=== PATIENT | female | born 1960 | race African-American/Black ===

== ENCOUNTER 2017-11-27 15:41 | Emergency (ER) | payer OTHER ==
[2017-11-27] MEDS ORDERED: Ketorolac Tromethamine 30 MG/ML VIAL ONE (16:36)
[2017-11-27] MEDS ORDERED: diphenhydrAMINE 50 MG/ML VIAL ONE (16:36)
[2017-11-27] MEDS ORDERED: Metoclopramide HCl 10 MG/2 ML VIAL ONE (16:37)
[2017-11-27] MEDS ORDERED: HYDROcodone/Acetaminophen 5/325 mg Tablet ONE (18:15)
== END 2017-11-27 18:25 | disposition home or self-care (01) ==
LOC: SCSER 15:41
DX: R51 Headache (principal); E11.9 Type 2 diabetes mellitus without complications; E78.5 Hyperlipidemia, unspecified; I10 Essential (primary) hypertension
CPT/HCPCS: 96365; 96375; J1200; J1885; J2765

== ENCOUNTER 2017-12-01 11:01 | Outpatient (CLI) | payer OTHER ==
--- NOTE | 2017-12-01 13:16 | CT ---
CT BRAIN NONCONTRAST: HISTORY: 57-year-old female with new onset headache. FINDINGS: There is no midline shift or any other mass effect. There is no evidence of acute intracranial hemor rhage, large cortical infarct, obstructive hydrocephalus, or extraaxial fluid collection. The calvar ium is intact. There is 0.7 x 0.6 cm calcification in the left deep parietal region, slightly inferio r to the trigone of the left lateral ventricle, of uncertain etiology and significance. The upper por tions of the paranasal sinuses are grossly clear. Bilateral middle ear cavities and mastoid antra are also grossly clear. IMPRESSION: 1. No acute intracranial findings. 2. Nonspecific left deep parietal intraaxial small calcification. jn R POS: TPC
== END 2017-12-01 11:02 | disposition home or self-care (01) ==
LOC: SCSCT 11:01
PROVIDERS: ATTEND Family Medicine
DX: G44.89 Other headache syndrome (principal); G93.89 Other specified disorders of brain
CPT/HCPCS: 70450

== ENCOUNTER 2018-03-08 09:47 | Outpatient (CLI) | payer OTHER ==
[2018-03-08 11:48] LABS: #Eosinphils 0.3 thou/uL (0.0-0.7); #Lymphocytes 1.2 thou/uL (1.20-3.40); #Monocytes 0.4 thou/uL (0.11-0.59); #Neutrophils 1.7 thou/uL (1.40-6.50); %Basophils 0.4 % (0.0-1.0); %Eosinophils 9.2 % (0.0-10.0); %Monocytes 9.9 % (0.0-10.0); %Neutrophils 47.5 % (42.0-75.0); Mean Corpuscular HGB CONC 34.4 g/dL (32.0-36.0); Mean Corpuscular Volume 87.3 fl (81.0-99.0); Mean Platelet Volume 8.7 fL (7.4-10.4); Platelet Count 210 thou/uL (130-400); RBC Distribution Width 11.6 % (11.5-14.5); Red Blood Cell (RBC) Count 4.68 mill/uL (4.20-5.40); White Blood Cell (WBC) Count 3.6 thou/uL (4.8-10.8)
[2018-03-08 12:19] LABS: Anion Gap 12 mmol/L (10-20); BUN (Urea Nitrogen) 9 mg/dL (9.8-20.1); Calc. Creatinine Clearance 0 mL/min (70-130); Calcium 10.2 mg/dL (7.8-10.44); Carbon Dioxide 32 mmol/L (22-29); Chloride 100 mmol/L (98-107); Estimated GFR-MDRD Greater than 90; Glucose 71 mg/dL (70-105); Potassium 3.7 mmol/L (3.5-5.1); Sodium 140 mmol/L (136-145)
--- NOTE | 2018-05-03 17:47 | EKG ---
Test Reason : Blood Pressure : / mmHG Vent. Rate : 059 BPM Atrial Rate : 059 BPM P-R Int : 192 ms QRS Dur : 094 ms QT Int : 420 ms P-R-T Axes : 049 026 026 degrees QTc Int : 415 ms Sinus bradycardia Otherwise normal ECG When compared with ECG of 02-MAR-2016 12:28, No significant change was found Confirmed by FREDDIE EDMONDS M.D. ([id number]) on 05/03/2018 5:47:03 PM Referred By: TD Confirmed By:FREDDIE EDMONDS M.D.
== END 2018-03-08 09:48 | disposition home or self-care (01) ==
LOC: LABBT 09:47
PROVIDERS: ATTEND Orthopaedic Surgery
DX: Z01.818 Encounter for other preprocedural examination (principal); M23.41 Loose body in knee, right knee
CPT/HCPCS: 80048; 85025; 93005; 93010

== ENCOUNTER 2018-03-16 06:05 | Day surgery (SDC) | payer OTHER ==
[2018-03-08 10:17] VITALS: BMI 37.5
[2018-03-16] MEDS ORDERED: Levofloxacin 500 mg/D5W 100 ml Premix Bag ONE (06:54)
[2018-03-16] MEDS ORDERED: Vancomycin HCl 1.5 GM in Sodium Chloride 0.9% 250 ML 300 ML IVPB SCH (07:00)
[2018-03-16] MEDS ORDERED: Promethazine HCl 25 MG/ML VIAL IM PRN (08:20)
[2018-03-16] MEDS ORDERED: Promethazine HCl 25 MG/ML VIAL SLOW IVP PRN (08:20)
[2018-03-16] MEDS ORDERED: Ondansetron HCl/PF 4 MG/2 ML Vial IVP PRN (08:20)
[2018-03-16] MEDS ORDERED: Fentanyl 100 MCG/2 ML VIAL ONE ×2 (08:28→08:42)
[2018-03-16] MEDS ORDERED: Morphine 4 MG/ML VIAL ONE ×2 (09:13→09:53)
--- NOTE | 2018-03-16 10:47 | OP ---
DATE OF PROCEDURE: 03/16/2018 PREOPERATIVE DIAGNOSIS: Possible loose body, right knee. POSTOPERATIVE DIAGNOSIS: A synovial cyst and soft tissue loose body, right knee. SURGEON: Roger Plaza M.D. ANESTHESIA: General. BLOOD LOSS: Minimal. SPECIMEN: None. DRAINS: None. COMPLICATIONS: None. TITLE OF PROCEDURE: Major synovectomy and removal of soft tissue loose bodies. PROCEDURE IN DETAIL: The scope was placed in the lateral portal and probe was placed in medial herminia l. There was no sign of loosening or debinding between the metal and the bone. There was quite a bi t of synovium between the femur and the tibia. There was 1 large loose piece of synovium which was r emoved. I performed a significant synovectomy between the femur and the tibia. The patellofemoral j oint was also debrided and a synovectomy was performed here. The gutters were cleared, suprapatellar pouch was clear, could find no other evidence of any loose bodies and the synovium been removed from the joint. The knee was then drained. Portals closed with nylon suture. Sterile dressings applied .
[2018-03-16] MEDS ORDERED: Dexamethasone 20 MG/5 ML VIAL ONE (14:01)
[2018-03-16] MEDS ORDERED: Ondansetron HCl/PF 4 MG/2 ML Vial ONE (14:01)
[2018-03-16] MEDS ORDERED: Ketorolac Tromethamine 30 MG/ML VIAL ONE (14:01)
[2018-03-16] MEDS ORDERED: PROPOFOL 200 MG/20 ML VIAL ONE (14:01)
[2018-03-16] MEDS ORDERED: Bupivacaine HCl 0.5%/Epinephrine 1:200,000/PF 30 ml Vial ONE (14:31)
[2018-03-16] MEDS ORDERED: Lidocaine 2% w/Epinephrine 1:200K 20 ML VIAL ONE (14:31)
--- NOTE | 2018-03-16 14:32 | EKG ---
Test Reason : REPEAT Blood Pressure : / mmHG Vent. Rate : 060 BPM Atrial Rate : 060 BPM P-R Int : 198 ms QRS Dur : 106 ms QT Int : 424 ms P-R-T Axes : 040 010 022 degrees QTc Int : 424 ms Normal sinus rhythm Minimal voltage criteria for LVH, may be normal variant Borderline ECG When compared with ECG of 08-MAR-2018 11:27, (Unconfirmed) No significant change was found Confirmed by JOSS CROOK ([id number]) on 03/16/2018 2:32:09 PM Referred By: SWEETIE MCCORMACK Confirmed By:JOSS CROOK
== END 2018-03-16 11:28 | disposition home or self-care (01) ==
LOC: SDC 06:05
PROVIDERS: ATTEND Orthopaedic Surgery
PROC: 0SCC4ZZ Extirpation of Matter from Right Knee Joint, Percutaneous Endoscopic Approach (ICD-10-PCS; principal; 2018-03-16)
PROC: 0SBC4ZZ Excision of Right Knee Joint, Percutaneous Endoscopic Approach (ICD-10-PCS; principal; 2018-03-16)
DX: M23.41 Loose body in knee, right knee (principal); M71.21 Synovial cyst of popliteal space [Baker], right knee; E11.9 Type 2 diabetes mellitus without complications; I10 Essential (primary) hypertension; E78.5 Hyperlipidemia, unspecified; M10.9 Gout, unspecified; G43.909 Migraine, unspecified, not intractable, without status migrainosus; Z96.651 Presence of right artificial knee joint; Z88.0 Allergy status to penicillin
CPT/HCPCS: 93005; 93010; 96374; G8978-GP-CJ; G8979-GP-CJ; G8980-GP-CJ; J0131; J0670; J1100; J1885; J1956; J2270; J2405; J2704; J3010; J3370; J7050

== ENCOUNTER 2019-02-15 09:14 | Outpatient (CLI) | payer OTHER ==
--- NOTE | 2019-03-06 12:16 | MMO ---
Bilateral MAMMO Bilat Screen [facility]XANE. CLINICAL HISTORY: Patient is 58 years old and is seen for screening. The patient has no family history of breast cancer. The patient has no personal history of cancer. The patient has a history of left Cyst Aspiration at age 16 - had abcess drained around her left nipple- area ma. VIEWS: The views performed were: bilateral craniocaudal with tomosynthesis and bilateral mediolateral oblique with tomosynthesis. FILMS COMPARED: The present examination has been compared to a prior imaging study performed at [facility] on 08/15/2013. MAMMOGRAM FINDINGS: There are scattered fibroglandular densities. There is a mass measuring 8 millimeters with obscured margins seen in the upper-outer region of the left breast. In the right breast, there are no suspicious masses, calcifications or areas of architectural distortion. IMPRESSION: MASS IN THE LEFT BREAST REQUIRES ADDITIONAL EVALUATION. ADDITIONAL PROJECTIONS (LEFT CRANIOCAUDAL SPOT COMPRESSION; LEFT MEDIOLATERAL OBLIQUE SPOT COMPRESSION; AND LEFT MEDIOLATERAL) ARE RECOMMENDED. AN ULTRASOUND EXAM IS RECOMMENDED. ADDITIONAL IMAGING. THE RESULTS OF THIS EXAM WERE SENT TO THE PATIENT. ACR BI-RADS Category 0 - Incomplete: Need additional imaging evaluation. [facility] will notify the patient of the need for additional imaging services. MAMMOGRAPHY NOTE: 1. A negative mammogram report should not delay a biopsy if a dominant of clinically suspicious mass is present. 2. Approximately 10% to 15% of breast cancers are not detected by mammography. 3. Adenosis and dense breasts may obscure an underlying neoplasm.
== END 2019-02-15 09:15 | disposition home or self-care (01) ==
LOC: BICMAMMO 09:14
PROVIDERS: ATTEND Family Medicine
DX: Z12.31 Encounter for screening mammogram for malignant neoplasm of breast (principal); N63.20 Unspecified lump in the left breast, unspecified quadrant
CPT/HCPCS: 77063; 77067

== ENCOUNTER 2019-03-08 12:46 | Outpatient (CLI) | payer OTHER ==
--- NOTE | 2019-03-08 13:53 | MMO ---
Left Breast MAMMO Unilat Diag DDI LT+ROXANE. CLINICAL HISTORY: Patient is 58 years old and is seen for diagnostic exam. The patient has no family history of breast cancer. The patient has no personal history of cancer. The patient has a history of left Cyst Aspiration at age 16 - had abcess drained around her left nipple- area ma. VIEWS: The views performed were: left craniocaudal spot compression with tomosynthesis; left mediolateral oblique spot compression with tomosynthesis; and left mediolateral with tomosynthesis. FILMS COMPARED: The present examination has been compared to prior imaging studies performed at [facility] on 02/15/2019 and 03/08/2019, and at [facility] on 08/15/2013. MAMMOGRAM FINDINGS: There are scattered fibroglandular densities. There is a new lobular mass measuring 6 x 9 x 10 mm with circumscribed margins seen in the left breast. There are no suspicious masses, suspicious calcifications, or new areas of architectural distortion. IMPRESSION: THERE IS NO MAMMOGRAPHIC EVIDENCE OF MALIGNANCY. CYST ON ULTRASOUND A ROUTINE FOLLOW-UP MAMMOGRAM IN 1 YEAR IS RECOMMENDED. THE RESULTS OF THIS EXAM WERE SENT TO THE PATIENT. ACR BI-RADS Category 2 - Benign finding MAMMOGRAPHY NOTE: 1. A negative mammogram report should not delay a biopsy if a dominant of clinically suspicious mass is present. 2. Approximately 10% to 15% of breast cancers are not detected by mammography. 3. Adenosis and dense breasts may obscure an underlying neoplasm.
--- NOTE | 2019-03-08 16:06 | ULT ---
LEFT BREAST ULTRASOUND: Date: 03/08/19 HISTORY: Follow-up abnormal mammogram. COMPARISON: 03/08/19 left diagnostic mammogram. FINDINGS: Attention is made to the 12 o'clock to 3 o'clock position to evaluate a new nodular density seen on m ammogram. In the 3 o'clock position, approximately 3.0 cm from the nipple, there is a 0.4 x 1.0 x 1.0 cm diamet er slightly complicated, minimally septated appearing cyst. This appears to correspond to the mammogr aphic finding. IMPRESSION: BI-RADS Category 2 - Benign findings. Annual follow-up screening mammography is recommended. Slightly complicated cyst at 3 o'clock, accounting for the mammographic finding. POS: OFF
== END 2019-03-08 12:47 | disposition home or self-care (01) ==
LOC: BICMAMMO 12:46
PROVIDERS: ATTEND Family Medicine
DX: N63.20 Unspecified lump in the left breast, unspecified quadrant (principal); N60.02 Solitary cyst of left breast
CPT/HCPCS: G0279

== ENCOUNTER 2020-04-03 09:47 | Outpatient (CLI) | payer OTHER ==
--- NOTE | 2020-04-03 10:27 | MMO ---
Bilateral MAMMO Bilat Screen [facility]DI[facility]ROXANE. CLINICAL HISTORY: Patient is 59 years old and is seen for screening. The patient has no family history of breast cancer. The patient has no personal history of cancer. The patient has a history of left Cyst Aspiration at age 16 - had abcess drained around her left nipple- area ma. VIEWS: The views performed were: bilateral craniocaudal with tomosynthesis and bilateral mediolateral oblique with tomosynthesis. FILMS COMPARED: The present examination has been compared to prior imaging studies performed at [facility] on 02/15/2019 and 03/08/2019, and at [facility] on 08/15/2013. This study has been interpreted with the assistance of computer-aided detection. MAMMOGRAM FINDINGS: There are scattered fibroglandular densities. Stable nodule outer left breast. There are no suspicious masses, suspicious calcifications, or new areas of architectural distortion. IMPRESSION: THERE IS NO MAMMOGRAPHIC EVIDENCE OF MALIGNANCY. A ROUTINE FOLLOW-UP MAMMOGRAM IN 1 YEAR IS RECOMMENDED. THE RESULTS OF THIS EXAM WERE SENT TO THE PATIENT. ACR BI-RADS Category 2 - Benign finding MAMMOGRAPHY NOTE: 1. A negative mammogram report should not delay a biopsy if a dominant of clinically suspicious mass is present. 2. Approximately 10% to 15% of breast cancers are not detected by mammography. 3. Adenosis and dense breasts may obscure an underlying neoplasm. Reported by: URSULA EDEN MD Electonically Signed: [id number]
== END 2020-04-03 09:48 | disposition home or self-care (01) ==
LOC: BICMAMMO 09:47
PROVIDERS: ATTEND Family Medicine
DX: Z12.31 Encounter for screening mammogram for malignant neoplasm of breast (principal); Z91.89 Other specified personal risk factors, not elsewhere classified
CPT/HCPCS: 77063; 77067

== ENCOUNTER 2020-08-12 10:25 | Outpatient (CLI) | payer OTHER ==
--- NOTE | 2020-08-12 12:42 | RAD ---
LEFT SHOULDER 3 VIEWS: Date: 08/12/2020 HISTORY: Fall, left shoulder pain. FINDINGS/IMPRESSION: There are degenerative changes in the acromioclavicular joint. No acute fracture or dislocation is id entified. POS: AH
== END 2020-08-12 10:26 | disposition home or self-care (01) ==
LOC: BICRAD 10:25
PROVIDERS: ATTEND Family Medicine
DX: M25.512 Pain in left shoulder (principal); M19.012 Primary osteoarthritis, left shoulder

== ENCOUNTER 2021-10-22 11:15 | Emergency (ER) | payer OTHER ==
[2021-10-22 12:53] LABS: #Eosinphils 0.3 thou/uL (0.0-0.7); #Lymphocytes 1.1 thou/uL (1.20-3.40); #Monocytes 0.3 thou/uL (0.11-0.59); %Basophils 0.2 % (0.0-1.0); %Eosinophils 11.1 % (0.0-10.0); %Lymphocytes 41.3 % (21.0-51.0); %Monocytes 12.2 % (0.0-10.0); %Neutrophils 35.2 % (42.0-75.0); Hemoglobin 13.8 g/dL (12.0-16.0); Mean Corpuscular HGB CONC 33.3 g/dL (32.0-36.0); Mean Corpuscular Hemoglobin 29.2 pg (27.0-31.0); Mean Corpuscular Volume 87.8 fL (78.0-98.0); Mean Platelet Volume 10.4 fL (7.4-10.4); Platelet Count 219 thou/uL (130-400); RBC Distribution Width 12.8 % (11.5-14.5); Red Blood Cell (RBC) Count 4.73 mill/uL (4.20-5.40); White Blood Cell (WBC) Count 2.7 thou/uL (4.8-10.8)
[2021-10-22 13:18] LABS: Bilirubin Negative (Negative); Blood, Urine Negative (Negative); Clarity Clear (Clear); Glucose, Urine (Dipstick) Normal (Negative); Ketone, Urine Negative (Negative); Leukocyte 250 Leu/uL (Negative); Nitrite Negative (Negative); Protein, Urine (Dipstick) 20 mg/dL (Neg-Trace); RBC/HPF 0-3 HPF (0-3); Specific Gravity, Urine 1.015 (1.002-1.036); Squamous Epithelial 0-3 HPF (0-3); Urobilinogen Normal mg/dL (Less than 2); pH, Urine 5.5 (5.0-9.0)
[2021-10-22 13:19] LABS: Bacteria/HPF 1+ HPF (None Seen)
[2021-10-22 13:24] LABS: ALT (SGPT) 25 U/L (8-55); AST (SGOT) 49 U/L (5-34); Albumin 4.1 g/dL (3.4-4.8); Alkaline Phosphatase 138 U/L (40-110); Anion Gap 15 mmol/L (10-20); BUN (Urea Nitrogen) 20 mg/dL (9.8-20.1); Bilirubin, Total 0.9 mg/dL (0.2-1.2); Calc. Creatinine Clearance 0 mL/min (70-130); Calcium 10.1 mg/dL (7.8-10.44); Carbon Dioxide 33 mmol/L (23-31); Chloride 93 mmol/L (98-107); Globulin 3.9 g/dL (2.4-3.5); Glucose 79 mg/dL (80-115); Potassium 3.2 mmol/L (3.5-5.1); Sodium 138 mmol/L (136-145)
== END 2021-10-22 15:50 | disposition home or self-care (01) ==
LOC: ERS 11:15
DX: K80.20 Calculus of gallbladder without cholecystitis without obstruction (principal); N17.9 Acute kidney failure, unspecified; E86.0 Dehydration; E11.9 Type 2 diabetes mellitus without complications; E78.5 Hyperlipidemia, unspecified; E78.00 Pure hypercholesterolemia, unspecified; I10 Essential (primary) hypertension; M10.9 Gout, unspecified; G43.909 Migraine, unspecified, not intractable, without status migrainosus; Z79.84 Long term (current) use of oral hypoglycemic drugs
CPT/HCPCS: 74176; 80053; 81003; 81015; 82150; 83690; 85025

== ENCOUNTER 2021-11-19 07:10 | Outpatient (CLI) | payer OTHER ==
[2021-11-19 08:26] LABS: #Basophils 0.1 10x3/uL (0.0-0.2); #Eosinphils 0.8 10x3/uL (0.0-0.5); #Monocytes 0.6 10x3/uL (0.0-1.1); #Neutrophils 1.8 10x3/uL (1.5-8.4); %Basophils 1.4 % (0.0-2.0); %Lymphocytes 29.4 % (18.0-47.0); %Monocytes 12.4 % (0.0-10.0); %Neutrophils 39.6 % (40.0-75.0); Hemoglobin 12.5 g/dL (12.0-15.5); Mean Corpuscular HGB CONC 33.5 g/dL (32.0-36.0); Mean Corpuscular Hemoglobin 28.4 pg (27.0-33.0); Mean Corpuscular Volume 84.8 fl (81.6-98.3); Platelet Count 273 10x3/uL (150-450); RBC Distribution Width 13.2 % (11.5-14.5); White Blood Cell (WBC) Count 4.4 10x3/uL (3.5-10.5)
[2021-11-19 08:32] LABS: Prothrombin Time 11.2 sec (9.5-12.1)
[2021-11-19 23:04] LABS: SARS-CoV-2 PCR by NAA Not Detected (NotDetected)
== END 2021-11-19 07:11 | disposition home or self-care (01) ==
LOC: LABBT 07:10
PROVIDERS: ATTEND Orthopaedic Surgery
DX: Z01.812 Encounter for preprocedural laboratory examination (principal); T84.093A Other mechanical complication of internal left knee prosthesis, initial encounter; Z96.652 Presence of left artificial knee joint; Z20.822 Contact with and (suspected) exposure to COVID-19
CPT/HCPCS: 85025; 85610; 87081; U0003; U0005

== ENCOUNTER 2021-11-24 08:55 | Inpatient (IN) | payer OTHER ==
[2021-11-19 10:18] VITALS: BMI 32.4
[2021-11-24] MEDS ORDERED: Sodium Chloride 0.9% 100 ML ONE (09:46)
[2021-11-24] MEDS ORDERED: Tranexamic Acid 1,000 MG/10 ML VIAL ONE (09:46)
[2021-11-24] MEDS ORDERED: Midazolam HCl 2 mg/2 ml Vial ONE ×2 (10:10→13:21)
[2021-11-24] MEDS ORDERED: Fentanyl 250 MCG/5 ML VIAL ONE ×3 (10:12→13:20)
[2021-11-24] MEDS ORDERED: Fentanyl 100 MCG/2 ML VIAL IV PRN (10:29)
[2021-11-24] MEDS ORDERED: HYDROcodone/Acetaminophen 10/325 mg Tablet PO PRN (10:30)
[2021-11-24] MEDS ORDERED: Ondansetron PF 4 MG/2 ML Vial IVP PRN (10:30)
[2021-11-24] MEDS ORDERED: Promethazine HCl 25 MG/ML VIAL IM PRN ×2 (10:30→10:53)
[2021-11-24] MEDS ORDERED: Ropivacaine 0.2% 550 ML 550 ML NERVE BLCK SCH (10:30)
[2021-11-24] MEDS ORDERED: Zolpidem Tartrate 5 MG TAB PO PRN ×2 (10:30→10:53)
[2021-11-24] MEDS ORDERED: traMADol HCl 50 MG TAB PO PRN (10:30)
[2021-11-24] MEDS ORDERED: diphenhydrAMINE 25 MG CAP PO PRN (10:53)
[2021-11-24] MEDS ORDERED: Acetaminophen 325 MG TAB PO PRN (10:53)
[2021-11-24] MEDS ORDERED: Bupivacaine PF 0.5% 30 ML VIAL ONE (11:13)
[2021-11-24] MEDS ORDERED: ceFAZolin Sodium (SDC) 2 GM/100 ML BAG ONE (11:25)
[2021-11-24] MEDS ORDERED: Levofloxacin 500 mg/D5W 100 ml Premix Bag ONE (11:33)
[2021-11-24] MEDS ORDERED: Lidocaine 1% PF 5 ML VIAL ONE (11:35)
[2021-11-24] MEDS ORDERED: PROPOFOL 200 MG/20 ML VIAL ONE (11:35)
[2021-11-24] MEDS ORDERED: ePHEDrine 50 MG/ML VIAL ONE (11:35)
[2021-11-24] MEDS ORDERED: Ondansetron PF 4 MG/2 ML Vial ONE (11:35)
[2021-11-24] MEDS ORDERED: Bupivacaine HCl 0.5%/Epinephrine 1:200,000/PF 30 ml Vial ONE (11:35)
[2021-11-24] MEDS: HYDROcodone/Acetaminophen 10/325 mg Tablet PO PRN ×2 (16:04→20:38)
[2021-11-24] MEDS: Sodium Chloride 0.9% 1,000 ML IV SCH ×3 (16:08→21:23)
[2021-11-24] MEDS: Gabapentin 300 MG CAP PO SCH ×2 (16:08→20:39)
[2021-11-24] MEDS ORDERED: Dextrose 50% Abboject 50 ML SYRINGE SLOW IVP PRN (17:06)
[2021-11-24] MEDS ORDERED: Dextrose 5% in Water 1,000 ML IV PRN (17:06)
[2021-11-24] MEDS ORDERED: HumaLOG 300 UNITS/3 ML VIAL SC PRN ×2 (17:06)
[2021-11-24] MEDS: Aspirin 81 mg Enteric Coated Tablet PO SCH (20:39)
[2021-11-24] MEDS: tiZANidine HCl 4 MG TAB PO SCH (20:39)
[2021-11-24] MEDS: Colchicine 0.6 MG TAB PO SCH (20:39)
[2021-11-24] MEDS ORDERED: Aspirin 81 mg Enteric Coated Tablet PO SCH (21:00)
[2021-11-24] MEDS ORDERED: Amlodipine 5 MG TAB PO SCH ×2 (21:00)
[2021-11-24] MEDS ORDERED: Vancomycin HCl 1.5 GM in Sodium Chloride 0.9% 250 ML 300 ML IVPB SCH (23:00)
[2021-11-25] MEDS: HYDROcodone/Acetaminophen 10/325 mg Tablet PO PRN (02:21)
[2021-11-25 05:29] LABS: Hemoglobin 10.8 g/dL (12.0-16.0); Mean Corpuscular HGB CONC 33.6 g/dL (32.0-36.0); Mean Corpuscular Hemoglobin 29.7 pg (27.0-31.0); Mean Corpuscular Volume 88.4 fL (78.0-98.0); Platelet Count 254 thou/uL (130-400); RBC Distribution Width 12.8 % (11.5-14.5); Red Blood Cell (RBC) Count 3.65 mill/uL (4.20-5.40); White Blood Cell (WBC) Count 6.8 thou/uL (4.8-10.8)
[2021-11-25] MEDS: Sodium Chloride 0.9% 1,000 ML IV SCH ×2 (06:42→14:46)
[2021-11-25] MEDS ORDERED: Sodium Chloride 0.9% 1,000 ML IV SCH (08:00)
[2021-11-25] MEDS: Senokot S 8.6-50 MG TAB PO SCH ×2 (08:07→20:13)
[2021-11-25] MEDS: Multivitamin W/ Minerals 1 TAB PO SCH (08:07)
[2021-11-25] MEDS: Atorvastatin Calcium 10 MG TAB PO SCH (08:08)
[2021-11-25] MEDS: Ferrous Gluconate 324 MG TAB PO SCH ×2 (08:08→16:43)
[2021-11-25] MEDS: metFORMIN 500 MG TAB PO SCH (08:08)
[2021-11-25] MEDS: Colchicine 0.6 MG TAB PO SCH ×2 (08:08→20:12)
[2021-11-25] MEDS: Calcitriol 0.25 MCG CAP PO SCH (08:08)
[2021-11-25] MEDS: Aspirin 81 mg Enteric Coated Tablet PO SCH ×2 (08:08→20:11)
[2021-11-25] MEDS ORDERED: Hydrochlorothiazide 25 MG TAB PO SCH ×2 (09:00)
[2021-11-25] MEDS: Gabapentin 300 MG CAP PO SCH ×3 (09:35→20:12)
[2021-11-25 10:49] LABS: Anion Gap 14 mmol/L (10-20); BUN (Urea Nitrogen) 12 mg/dL (9.8-20.1); Calc. Creatinine Clearance 49 mL/min (70-130); Calcium 8.1 mg/dL (7.8-10.44); Carbon Dioxide 27 mmol/L (23-31); Chloride 97 mmol/L (98-107); Glucose 168 mg/dL (80-115); Potassium 3.5 mmol/L (3.5-5.1); Sodium 134 mmol/L (136-145)
[2021-11-25] MEDS: traMADol HCl 50 MG TAB PO PRN ×3 (13:05→20:14)
[2021-11-25] MEDS: Acetaminophen 325 MG TAB PO SCH ×3 (13:07→20:10)
[2021-11-25] MEDS: Ondansetron PF 4 MG/2 ML Vial IVP PRN (20:07)
[2021-11-25] MEDS: tiZANidine HCl 4 MG TAB PO SCH (20:14)
[2021-11-26] MEDS: Acetaminophen 325 MG TAB PO SCH ×7 (00:20→20:31)
[2021-11-26] MEDS: Sodium Chloride 0.9% 1,000 ML IV SCH ×4 (02:06→23:20)
[2021-11-26] MEDS: traMADol HCl 50 MG TAB PO PRN (05:06)
[2021-11-26] MEDS: HYDROcodone/Acetaminophen 10/325 mg Tablet PO PRN ×2 (09:04→12:42)
[2021-11-26] MEDS: Calcitriol 0.25 MCG CAP PO SCH (09:05)
[2021-11-26] MEDS: Colchicine 0.6 MG TAB PO SCH ×2 (09:06→20:30)
[2021-11-26] MEDS: Ferrous Gluconate 324 MG TAB PO SCH ×2 (09:06→18:32)
[2021-11-26] MEDS: Multivitamin W/ Minerals 1 TAB PO SCH (09:06)
[2021-11-26] MEDS: Aspirin 81 mg Enteric Coated Tablet PO SCH ×2 (09:06→20:30)
[2021-11-26] MEDS: Gabapentin 300 MG CAP PO SCH ×3 (09:06→19:58)
[2021-11-26] MEDS: metFORMIN 500 MG TAB PO SCH (09:06)
[2021-11-26] MEDS: Atorvastatin Calcium 10 MG TAB PO SCH (09:07)
[2021-11-26] MEDS: Senokot S 8.6-50 MG TAB PO SCH ×2 (09:08→20:30)
[2021-11-26 19:53] LABS: #Eosinphils 0.2 thou/uL (0.0-0.7); #Lymphocytes 0.4 thou/uL (1.20-3.40); #Monocytes 0.6 thou/uL (0.11-0.59); #Neutrophils 5.5 thou/uL (1.40-6.50); %Eosinophils 3.6 % (0.0-10.0); %Lymphocytes 6.5 % (21.0-51.0); %Monocytes 8.6 % (0.0-10.0); %Neutrophils 81.3 % (42.0-75.0); Hemoglobin 12.3 g/dL (12.0-16.0); Mean Corpuscular HGB CONC 33.1 g/dL (32.0-36.0); Mean Corpuscular Hemoglobin 29.8 pg (27.0-31.0); Mean Platelet Volume 10.6 fL (7.4-10.4); Platelet Count 173 thou/uL (130-400); RBC Distribution Width 12.8 % (11.5-14.5); Red Blood Cell (RBC) Count 4.13 mill/uL (4.20-5.40); White Blood Cell (WBC) Count 6.7 thou/uL (4.8-10.8)
[2021-11-26] MEDS: tiZANidine HCl 4 MG TAB PO SCH (20:30)
[2021-11-26] MEDS: VANCOMYCIN 1.25 GM/250 ML BAG 1.25 GM in Premix Bag 1 BAG IVPB SCH (23:26)
[2021-11-26 23:31] LABS: #Eosinphils 0.1 thou/uL (0.0-0.7); #Lymphocytes 0.6 thou/uL (1.20-3.40); #Monocytes 0.6 thou/uL (0.11-0.59); #Neutrophils 5.3 thou/uL (1.40-6.50); %Basophils 0.2 % (0.0-1.0); %Eosinophils 1.3 % (0.0-10.0); %Monocytes 8.4 % (0.0-10.0); Hemoglobin 9.6 g/dL (12.0-16.0); Mean Corpuscular HGB CONC 34.4 g/dL (32.0-36.0); Mean Corpuscular Hemoglobin 30.4 pg (27.0-31.0); Mean Corpuscular Volume 88.3 fL (78.0-98.0); Mean Platelet Volume 10.6 fL (7.4-10.4); Platelet Count 182 thou/uL (130-400); RBC Distribution Width 12.9 % (11.5-14.5); Red Blood Cell (RBC) Count 3.17 mill/uL (4.20-5.40); White Blood Cell (WBC) Count 6.5 thou/uL (4.8-10.8)
[2021-11-26 23:42] LABS: Anion Gap 14 mmol/L (10-20); BUN (Urea Nitrogen) 10 mg/dL (9.8-20.1); Calc. Creatinine Clearance 62 mL/min (70-130); Calcium 7.7 mg/dL (7.8-10.44); Carbon Dioxide 26 mmol/L (23-31); Chloride 96 mmol/L (98-107); Glucose 227 mg/dL (80-115); Sodium 133 mmol/L (136-145)
[2021-11-26 23:49] LABS: Potassium 2.7 mmol/L (3.5-5.1)
[2021-11-27] MEDS ORDERED: Potassium Chloride 20 MEQ TAB PO SCH ×2 (00:15→09:00)
[2021-11-27] MEDS: Acetaminophen 325 MG TAB PO SCH ×6 (00:45→21:25)
[2021-11-27 01:11] LABS: Bacteria/HPF None Seen HPF (None Seen); Bilirubin Negative (Negative); Blood, Urine Negative (Negative); Clarity Clear (Clear); Glucose, Urine (Dipstick) Normal (Negative); Ketone, Urine Negative (Negative); Leukocyte Negative Leu/uL (Negative); Nitrite Negative (Negative); Protein, Urine (Dipstick) 20 mg/dL (Neg-Trace); RBC/HPF 0-3 HPF (0-3); Squamous Epithelial 0-3 HPF (0-3); Urobilinogen Normal mg/dL (Less than 2); WBC/HPF 0-3 HPF (0-3); pH, Urine 5.5 (5.0-9.0)
[2021-11-27 01:12] LABS: Urine Culture Reflex No No
[2021-11-27] MEDS ORDERED: Magnesium Sulfate 4 GM in Sodium Chloride 0.9% 250 ML 250 ML IVPB SCH (03:00)
[2021-11-27 06:23] LABS: #Eosinphils 0.1 thou/uL (0.0-0.7); #Lymphocytes 0.5 thou/uL (1.20-3.40); #Monocytes 0.7 thou/uL (0.11-0.59); #Neutrophils 4.5 thou/uL (1.40-6.50); %Eosinophils 1.7 % (0.0-10.0); %Lymphocytes 9.1 % (21.0-51.0); %Monocytes 12.1 % (0.0-10.0); %Neutrophils 77.1 % (42.0-75.0); Hemoglobin 10.1 g/dL (12.0-16.0); Mean Corpuscular Hemoglobin 29.9 pg (27.0-31.0); Platelet Count 182 thou/uL (130-400); Red Blood Cell (RBC) Count 3.38 mill/uL (4.20-5.40); White Blood Cell (WBC) Count 5.8 thou/uL (4.8-10.8)
[2021-11-27 06:45] LABS: Magnesium 1.9 mg/dL (1.6-2.6)
[2021-11-27 06:48] LABS: Anion Gap 12 mmol/L (10-20); BUN (Urea Nitrogen) 10 mg/dL (9.8-20.1); Calc. Creatinine Clearance 68 mL/min (70-130); Calcium 7.9 mg/dL (7.8-10.44); Carbon Dioxide 28 mmol/L (23-31); Chloride 95 mmol/L (98-107); Glucose 208 mg/dL (80-115); Sodium 132 mmol/L (136-145)
[2021-11-27 06:53] LABS: Potassium 2.8 mmol/L (3.5-5.1)
[2021-11-27] MEDS ORDERED: Potassium Chloride 20 MEQ in Premix Bag 1 BAG IVPB SCH (07:00)
[2021-11-27 07:01] LABS: SARS-CoV-2 NAA Rapid Test Not Detected (NotDetected)
[2021-11-27] MEDS: Gabapentin 300 MG CAP PO SCH ×3 (09:57→21:26)
[2021-11-27] MEDS: Calcitriol 0.25 MCG CAP PO SCH (09:57)
[2021-11-27] MEDS: Colchicine 0.6 MG TAB PO SCH ×2 (09:57→21:26)
[2021-11-27] MEDS: Aspirin 81 mg Enteric Coated Tablet PO SCH ×2 (09:57→21:26)
[2021-11-27] MEDS: Ferrous Gluconate 324 MG TAB PO SCH ×2 (09:58→17:07)
[2021-11-27] MEDS: Multivitamin W/ Minerals 1 TAB PO SCH (09:58)
[2021-11-27] MEDS: Atorvastatin Calcium 10 MG TAB PO SCH (09:58)
[2021-11-27] MEDS: metFORMIN 500 MG TAB PO SCH (09:58)
[2021-11-27] MEDS: Senokot S 8.6-50 MG TAB PO SCH ×2 (10:00→22:52)
[2021-11-27] MEDS: Sodium Chloride 0.9% 1,000 ML IV SCH (10:00)
[2021-11-27] MEDS: NS 0.9% w/ 20 MEQ KCL 1,000 ML/1,000 ML BAG IV SCH ×2 (10:29→22:49)
[2021-11-27] MEDS: Cefepime 1 GM in Sodium Chloride 0.9% 100 ML IVPB SCH ×2 (10:30→23:51)
[2021-11-27] MEDS: Ondansetron PF 4 MG/2 ML Vial IVP PRN (11:02)
[2021-11-27] MEDS: traMADol HCl 50 MG TAB PO PRN ×2 (14:00→15:40)
[2021-11-27 17:35] LABS: Anion Gap 15 mmol/L (10-20); BUN (Urea Nitrogen) 9 mg/dL (9.8-20.1); Calc. Creatinine Clearance 68 mL/min (70-130); Carbon Dioxide 25 mmol/L (23-31); Chloride 97 mmol/L (98-107); Glucose 215 mg/dL (80-115); Potassium 3.2 mmol/L (3.5-5.1); Sodium 134 mmol/L (136-145)
[2021-11-27] MEDS: tiZANidine HCl 4 MG TAB PO SCH (21:26)
[2021-11-28] MEDS: VANCOMYCIN 1.25 GM/250 ML BAG 1.25 GM in Premix Bag 1 BAG IVPB SCH (00:40)
[2021-11-28] MEDS: Acetaminophen 325 MG TAB PO SCH ×5 (02:12→16:41)
[2021-11-28] MEDS: NS 0.9% w/ 20 MEQ KCL 1,000 ML/1,000 ML BAG IV SCH (06:26)
[2021-11-28 08:01] LABS: #Eosinphils 0.3 thou/uL (0.0-0.7); #Lymphocytes 0.8 thou/uL (1.20-3.40); #Monocytes 0.6 thou/uL (0.11-0.59); #Neutrophils 2.8 thou/uL (1.40-6.50); %Basophils 0.2 % (0.0-1.0); %Eosinophils 6.3 % (0.0-10.0); %Lymphocytes 18.5 % (21.0-51.0); %Monocytes 12.9 % (0.0-10.0); Hemoglobin 8.9 g/dL (12.0-16.0); Mean Corpuscular HGB CONC 32.9 g/dL (32.0-36.0); Mean Corpuscular Hemoglobin 29.7 pg (27.0-31.0); Mean Corpuscular Volume 90.2 fL (78.0-98.0); Platelet Count 184 thou/uL (130-400); Red Blood Cell (RBC) Count 2.99 mill/uL (4.20-5.40); White Blood Cell (WBC) Count 4.5 thou/uL (4.8-10.8)
[2021-11-28 08:19] LABS: Anion Gap 12 mmol/L (10-20); BUN (Urea Nitrogen) 9 mg/dL (9.8-20.1); Calc. Creatinine Clearance 71 mL/min (70-130); Carbon Dioxide 26 mmol/L (23-31); Chloride 101 mmol/L (98-107); Potassium 3.2 mmol/L (3.5-5.1); Sodium 136 mmol/L (136-145)
[2021-11-28 08:20] LABS: ALT (SGPT) 16 U/L (8-55); AST (SGOT) 35 U/L (5-34); Albumin 2.6 g/dL (3.4-4.8); Alkaline Phosphatase 160 U/L (40-110); Bilirubin, Total 0.5 mg/dL (0.2-1.2); Calcium 7.7 mg/dL (7.8-10.44); Globulin 2.9 g/dL (2.4-3.5); Glucose 188 mg/dL (80-115); Magnesium 1.5 mg/dL (1.6-2.6); Protein, Total 5.5 g/dL (5.8-8.1)
[2021-11-28] MEDS ORDERED: NS 0.9% w/ 20 MEQ KCL 1,000 ML/1,000 ML BAG IV SCH (08:38)
[2021-11-28] MEDS ORDERED: Potassium Chloride 20 MEQ TAB PO SCH ×3 (08:45→17:00)
[2021-11-28] MEDS ORDERED: Magnesium Sulfate 4 GM in Sodium Chloride 0.9% 250 ML 250 ML IVPB SCH (08:45)
[2021-11-28] MEDS: Senokot S 8.6-50 MG TAB PO SCH (10:07)
[2021-11-28] MEDS: Multivitamin W/ Minerals 1 TAB PO SCH (10:08)
[2021-11-28] MEDS: Aspirin 81 mg Enteric Coated Tablet PO SCH (10:08)
[2021-11-28] MEDS: Colchicine 0.6 MG TAB PO SCH (10:08)
[2021-11-28] MEDS: Calcitriol 0.25 MCG CAP PO SCH (10:08)
[2021-11-28] MEDS: Atorvastatin Calcium 10 MG TAB PO SCH (10:09)
[2021-11-28] MEDS: Gabapentin 300 MG CAP PO SCH (10:09)
[2021-11-28] MEDS: metFORMIN 500 MG TAB PO SCH (11:25)
[2021-11-28] MEDS: Ferrous Gluconate 324 MG TAB PO SCH ×2 (11:34→16:13)
[2021-11-28 12:23] VITALS: TEMP 98.2
[2021-11-28] MEDS: Cefepime 1 GM in Sodium Chloride 0.9% 100 ML IVPB SCH (15:20)
[2021-11-28 16:16] VITALS: BP 110/72
== END 2021-11-28 16:50 | disposition home health service (06) | DRG 467 ==
LOC: SDC 08:55 → SJJU 10:53
PROVIDERS: ADMIT Orthopaedic Surgery; ATTEND Internal Medicine
PROC: 0SWU0JZ Revision of Synthetic Substitute in Left Knee Joint, Femoral Surface, Open Approach (ICD-10-PCS; principal; 2021-11-24)
DX: T84.093A Other mechanical complication of internal left knee prosthesis, initial encounter (principal); E87.1 Hypo-osmolality and hyponatremia; Z96.651 Presence of right artificial knee joint; Z96.652 Presence of left artificial knee joint; E78.5 Hyperlipidemia, unspecified; M10.9 Gout, unspecified; G43.909 Migraine, unspecified, not intractable, without status migrainosus; N18.30 Chronic kidney disease, stage 3 unspecified; I12.9 Hypertensive chronic kidney disease with stage 1 through stage 4 chronic kidney disease, or unspecified chronic kidney disease; E11.22 Type 2 diabetes mellitus with diabetic chronic kidney disease; Y83.8 Other surgical procedures as the cause of abnormal reaction of the patient, or of later complication, without mention of misadventure at the time of the procedure; I95.9 Hypotension, unspecified; E87.6 Hypokalemia; E83.42 Hypomagnesemia; Z20.822 Contact with and (suspected) exposure to COVID-19; Z88.0 Allergy status to penicillin; Z90.710 Acquired absence of both cervix and uterus; Z88.8 Allergy status to other drugs, medicaments and biological substances; Z90.49 Acquired absence of other specified parts of digestive tract; Z79.82 Long term (current) use of aspirin; Z79.899 Other long term (current) drug therapy
CPT/HCPCS: 36415; 36416; 70450; 71045; 80048; 80053; 81001; 83605; 83735; 85025; 85027; 87040; 87804; A4306; C1776; J0690; J0692; J1815; J1956; J2250; J2405; J2704; J2795; J3010; J3370; J3475; J3480; J3490; J7030; J7050; S0020; U0002

== ENCOUNTER 2024-10-19 11:19 | Outpatient (CLI) | payer MEDICARE, OTHER | END 2024-10-19 11:20 | disposition home or self-care (01) | LOC: BICRAD 11:19 | DX: K59.00 Constipation, unspecified (principal) | CPT/HCPCS: 74022 ==

== ENCOUNTER 2025-06-17 14:11 | Outpatient (CLI) | payer MEDICARE, OTHER | END 2025-06-17 14:12 | disposition home or self-care (01) | LOC: BICMAMMO 14:11 | PROVIDERS: ATTEND Family Medicine | DX: Z12.31 Encounter for screening mammogram for malignant neoplasm of breast (principal); Z78.0 Asymptomatic menopausal state | CPT/HCPCS: 77063; 77067; 77080 ==